=== PATIENT | male | born 1935 | race Caucasian/White ===

== ENCOUNTER 2024-07-24 14:16 | Inpatient (IN) | payer MEDICARE ==
[~2024-07-24] VITALS: Ht 177.8 cm; Wt 97.3 kg
[2024-07-24] VITALS (12 sets, daily range): BP systolic 143–205; BP diastolic 62–93
[2024-07-24 14:44] LABS: BASOPHILS ABSOLUTE AUTO 0.03 K/mm3 (0.00-0.23); BASOPHILS PERCENT AUTO 0 % (0-2); EOSINOPHILS ABSOLUTE AUTO 0.38 K/mm3 (0.00-0.68); EOSINOPHILS PERCENT AUTO 5 % (0-6); Hemoglobin 14.5 g/dL (13.5-17.5); IMMATURE GRAN ABSOLUTE AUTO 0.03 K/mm3 (0.00-0.10); IMMATURE GRAN PERCENT AUTO 0 % (0-1); LYMPHOCYTES ABSOLUTE AUTO 1.31 K/mm3 (0.84-5.20); LYMPHOCYTES PERCENT AUTO 17 % (21-46); MONOCYTES ABSOLUTE AUTO 0.57 K/mm3 (0.16-1.47); MONOCYTES PERCENT AUTO 7 % (4-13); Mean Corpuscular HGB 29.7 pg (26.0-34.0); Mean Corpuscular Volume 90 fL (80-100); Mean Platelet Volume 9.9 fL (9.1-12.4); NEUTROPHILS ABSOLUTE AUTO 5.54 K/mm3 (1.96-9.15); NEUTROPHILS PERCENT AUTO 70 % (41-73); Platelet Count 205 K/mm3 (150-400); RDW Coefficient Variation 12.9 % (11.7-14.2); RDW Standard Deviation 43.4 fL (35.1-46.3); Red Blood Cell Count 4.88 M/mm3 (4.30-5.90); White Blood Cell Count 7.86 K/mm3 (4.00-11.30)
[2024-07-24] MEDS ORDERED: Aspirin 325 MG Tab PO ONE (15:00)
[2024-07-24 15:04] LABS: Albumin, Blood 3.8 g/dL (3.4-5.0); Albumin/Globulin Ratio 1.1 (0.8-1.8); Bilirubin, Total 1.9 mg/dL (0.1-1.0); Bun/Creatinine Ratio 22.5 (12.0-20.0); Calcium, Blood 9.3 mg/dL (8.5-10.1); Creatinine, Blood 0.85 mg/dL (0.60-1.20); Globulin, Blood 3.6 g/dL (2.2-4.0); Potassium, Blood 4.4 mmol/L (3.5-5.5); Total Protein, Blood 7.4 g/dL (6.4-8.2)
[2024-07-24 15:10] LABS: CHOL/HDL RATIO 2.4; Cholesterol 112 mg/dL (50-200); HDL Cholesterol 46 mg/dL (>39); LDL/HDL RATIO 1.2; Low Density Lipoprotein Chol 54 mg/dL (0-110); Triglycerides 61 mg/dL (30-160); Very Low Density Lipoprot Chol 12 mg/dL (6-32)
[2024-07-24 15:15] LABS: International Normalized Ratio 1.07; Prothrombin Time Results 11.4 Sec (9.7-11.5)
[2024-07-24] MEDS ORDERED: Metoprolol Tartrate 1 MG/ML 5 ML VIAL IV PRN ×2 (17:25→17:55)
[2024-07-24] MEDS ORDERED: HydrALAZINE HCl 20 MG / ML 1ML Vial IV PRN (22:50)
[2024-07-25] VITALS (15 sets, daily range): BP systolic 114–188; BP diastolic 50–73
[2024-07-25 00:20] LABS: Albumin, Blood 3.7 g/dL (3.4-5.0); Anion Gap 9 mmol/L (3-11); Blood Urea Nitrogen 17 mg/dL (8-24); CO2, Blood 27 mmol/L (21-32); Calcium, Blood 9.2 mg/dL (8.5-10.1); Chloride, Blood 106 mmol/L (98-108); Creatinine, Blood 0.71 mg/dL (0.60-1.20); Glomerular Filtration Rate 89 (60-); Glucose, Blood 96 mg/dL (70-99); Magnesium, Blood 2.1 mg/dL (1.6-2.4); Phosphorus, Blood 2.6 mg/dL (2.5-4.9); Potassium, Blood 4.3 mmol/L (3.5-5.5); Sodium, Blood 138 mmol/L (136-145)
[2024-07-25 04:57] LABS: Hematocrit 41.3 % (37.0-53.0); Hemoglobin 13.6 g/dL (13.5-17.5); Mean Corpuscular HGB Conc 32.9 g/dL (31.5-36.5); Mean Corpuscular Volume 91 fL (80-100); Mean Platelet Volume 10.1 fL (9.1-12.4); Platelet Count 190 K/mm3 (150-400); RDW Coefficient Variation 12.9 % (11.7-14.2); RDW Standard Deviation 42.9 fL (35.1-46.3); Red Blood Cell Count 4.54 M/mm3 (4.30-5.90); White Blood Cell Count 8.34 K/mm3 (4.00-11.30)
[2024-07-25 05:17] LABS: Bun/Creatinine Ratio 21.2 (12.0-20.0); Calcium, Blood 8.7 mg/dL (8.5-10.1); Creatinine, Blood 0.76 mg/dL (0.60-1.20); Potassium, Blood 3.9 mmol/L (3.5-5.5)
--- NOTE | 2024-07-25 07:00 | NUR ---
PT STABLE THROUGHOUT THE SHIFT BUT WAS CONSISTENTLY BRADYCARDIC IN AFIB/FLUTTER. PT TOLERATING LOW HR WELL AND WAS ASYMPTOMATIC. PHYSICIAN WAS CONTACTED REGARDING THIS, LABS DRAWN AND CONTINUE TO MONITOR. BP REMAINED WNL AND PERMISSIVE HTN WAS FOLLOWED. [place] WAS ABLE [place]AND [place] [facility] [place] PT WAS ABLE TO USE CALL LIGHT AND MAKE NEEDS KNOWN. NIH SCORES DONE. PT MAEW BUT DOES HAVE SLURRED SPEECH AND MILD WORD FINDING/DYSPHASIA.
--- NOTE | 2024-07-25 07:15 | NUR ---
SWALLOW EVAL DONE AT BEGINNING OF SHIFT AND WAS ABLE TO SWALLOW THIN LIQUIDS WELL WITHOUT S/S ASPIRATION.
[2024-07-25] MEDS ORDERED: Atorvastatin 10 MG Tab PO SCH ×2 (09:00)
[2024-07-25] MEDS ORDERED: Aspirin 325 MG Tab PO SCH ×2 (09:00)
[2024-07-25 16:29] LABS: Anti-Xa UFH, PHA Monitoring <0.10 IU/mL
--- NOTE | 2024-07-25 17:43 | NUR ---
SHIFT SUMMARY: PT A&OX4, FOLLOWS COMMANDS AND MAKES NEEDS KNOWN TO STAFF. PTS NIHSS WAS 1 THIS AM AND THERE HAVE BEEN NO WORSENING NEURO SYMPTOMS THROUGHOUT SHIFT. PT HAS REMAINED FREE OF ANY CP, PRESSURE OR TIGHTNESS. PTS BLOOD PRESSURE HAS BEEN WITHIN PERMISSIVE HYPERTENSION PERAMETERS. HR REMAINS ASTER AND IN AFIB. PT HAS NOT BEEN SYPTOMATIC WITH BRADYCARDIA. PROVIDER AWARE OF HR AND NO FURTHER ORDERS WERE GIVEN. PT REMAINS ON RA THROUGHOUT SHIFT AND HAS DENIED ANY COMPLAINTS OF SOB. PT WAS CHECKED OFF BY PT AND OT AND IS AMBULATING TO THE BATHROOM WITH SBA AND WALKER. PLAN TO START PT ON HEPARIN GTT THIS EVENING AND SWITCH TO PO THINNERS ONCE THERAPEUTIC. NO SIGNIFICANT EVENTS HAPPENED DURING THIS SHIFT. WILL CONTINUE TO CARE FOR PT TILL END OF SHIFT.
[2024-07-25] MEDS ORDERED: HydrALAZINE HCl 20 MG / ML 1ML Vial IV PRN (18:10)
[2024-07-25] MEDS ORDERED: Lisinopril 10 MG Tab PO SCH (19:00)
[2024-07-25] MEDS ORDERED: Dose Adjust by Pharmacy XX STA (22:06)
[2024-07-25] MEDS ORDERED: Heparin Sodium,Porcine/0.5 NS 500 ML IV SCH (22:10)
[2024-07-26] VITALS (7 sets, daily range): BP systolic 113–157; BP diastolic 58–81
[2024-07-26 04:33] LABS: Hematocrit 41.3 % (37.0-53.0); Hemoglobin 13.9 g/dL (13.5-17.5); Mean Corpuscular HGB 30.5 pg (26.0-34.0); Mean Corpuscular HGB Conc 33.7 g/dL (31.5-36.5); Mean Corpuscular Volume 91 fL (80-100); Mean Platelet Volume 10.1 fL (9.1-12.4); Platelet Count 200 K/mm3 (150-400); RDW Coefficient Variation 13.1 % (11.7-14.2); RDW Standard Deviation 43.3 fL (35.1-46.3); Red Blood Cell Count 4.56 M/mm3 (4.30-5.90); White Blood Cell Count 8.82 K/mm3 (4.00-11.30)
[2024-07-26 04:51] LABS: Bun/Creatinine Ratio 22.4 (12.0-20.0); Calcium, Blood 9.1 mg/dL (8.5-10.1); Creatinine, Blood 0.89 mg/dL (0.60-1.20); Potassium, Blood 3.9 mmol/L (3.5-5.5)
[2024-07-26] MEDS ORDERED: Clarify Drug Order XX ONE (05:00)
--- NOTE | 2024-07-26 06:44 | NUR ---
PT STABLE THROUGHOUT THE SHIFT. PT AOX4, SBA WITH IV POLE. PT IS STEADY ON FEET. PT ABLE TO USE CALL LIGHT AND MAKE NEEDS KNOWN. NIH IMPROVED FROM PREVIOUS NOC SHIFT AND REMAINED STABLE THROUGHOUT SHIFT. PT DOES CONTINUE TO HAVE BRADYCARDIA BUT IS ASYMPTOMATIC. PT CONTINUES TO MAEW. NEW ULTRASOUND GUIDED IV PLACED TO RIGHT UPPER ARM FOR HEPARIN AND PT TOLERATED WELL. PT DOES HAVE CONCERNS ABOUT BEING D/C'D FROM THE HOSPITAL SOON POSSIBLE AND WANTS TO RESOLVE ANY ISSUES WITH INSURANCE TO EXPEDITE THE D/C PROCESS, WILL PASS ALONG CONCERNS TO ONCOMING SHIFT.
--- NOTE | 2024-07-26 07:00 | NUR ---
PT TOLERATING HEPARIN INFUSION WELL, NO S/S BLEEDING/BRUISING.
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
[2024-07-26] MEDS ORDERED: Dose Adjust by Pharmacy XX STA (11:03)
[2024-07-26] MEDS ORDERED: ATOR10 PO (11:04)
[2024-07-26] MEDS ORDERED: Prinivil10 MG PO (11:05)
[2024-07-26] MEDS ORDERED: ELIQUIS5 M2 PO ×2 (11:09→12:03)
[2024-07-26] MEDS ORDERED: Apixaban 5 MG Tab PO SCH (14:00)
--- NOTE | 2024-07-26 17:40 | NUR ---
NURSING PCU DAYSHIFT SUMMARY: Pt has done very well t/o the shift. Majority of the shift pt has remained OOB in recliner. Currently dressed in personal clothes, working on laptop, visiting w/friend. Ambulates independetly w/assistance only needed for moving equipment. No neuro changes noted. VS have remained stable, HR 30-40's though increases to 50's w/ambulation, nonsymptomatic while emanuel. Discharge meds sent to home pharmacy for pricing and availability information, eliquis starter pack not available until tomorrow 07/27. Discussed plan w/PMD and pt, new d/o received. Hep gtt dc'd, PO eliquis started and first dose administered, plan for discharge home tomorrow.
[2024-07-27 04:18] LABS: BASOPHILS ABSOLUTE AUTO 0.04 K/mm3 (0.00-0.23); BASOPHILS PERCENT AUTO 1 % (0-2); EOSINOPHILS PERCENT AUTO 7 % (0-6); IMMATURE GRAN ABSOLUTE AUTO 0.02 K/mm3 (0.00-0.10); IMMATURE GRAN PERCENT AUTO 0 % (0-1); LYMPHOCYTES ABSOLUTE AUTO 1.81 K/mm3 (0.84-5.20); LYMPHOCYTES PERCENT AUTO 22 % (21-46); MONOCYTES ABSOLUTE AUTO 0.77 K/mm3 (0.16-1.47); MONOCYTES PERCENT AUTO 9 % (4-13); Mean Corpuscular HGB 30.4 pg (26.0-34.0); Mean Corpuscular HGB Conc 33.3 g/dL (31.5-36.5); Mean Corpuscular Volume 91 fL (80-100); Mean Platelet Volume 10.4 fL (9.1-12.4); NEUTROPHILS PERCENT AUTO 61 % (41-73); Platelet Count 200 K/mm3 (150-400); RDW Coefficient Variation 13.1 % (11.7-14.2); RDW Standard Deviation 43.7 fL (35.1-46.3); White Blood Cell Count 8.24 K/mm3 (4.00-11.30)
[2024-07-27 04:20] VITALS: BP 143/70
--- NOTE | 2024-07-27 04:54 | NUR ---
SHIFT SUMMARY THIS RN ASSUMED CARE OF PATIENT AT 1900. PT A&O X4. ABLE TO MAKE NEEDS KNOWN. OCCASIONAL SLURRED SPEECH, BUT DURING BEDSIDE SHIFT REPORT PREVIOUS RN XI STATED THAT PT'S SPEECH HAS GREATLY IMPROVED OVER THE DAY. THIS RN DOES NOT NOTE ANY CHANGES. MILD RT SIDED FACIAL DROOP. NO OTHER NEURO DEFICITS NOTED. INDEPENDENT WITH ADL'S. AMBULATING TO BATHROOM. EQUAL STRENGTH T/O. PT DENIES CHEST PAIN/PRESSURE. SLOW AFIB WITH HR 40-50'S ON MONITOR; ASYMPTOMATIC. BP STABLE. ON RA WITH SPO2 >92%. AFEBRILE. PT IN CHAIR T/O THIS SHIFT, REPORTS THAT HE ONLY TAKES "CAT NAPS". X1 PIV SALINE LOCKED. CALL LIGHT WITHIN REACH. THIS RN WILL REPORT TO ONCOMING DAYSHIFT RN.
[2024-07-27 08:22] VITALS: BP 143/75
[2024-07-27 11:27] VITALS: BP 150/54
--- NOTE | 2024-07-27 12:23 | NUR ---
DISCHARGE SUMMARY PT A&OX4, VSS. MEDICATIONS FAXED TO [facility] [address] PER PT REQUEST. DISCHARGE PAPERWORK REVIEWED W/ PT AND FRIEND. PT EXPRESSED DOES NOT YET HAVE PCP BUT IS ACCEPT TO [facility]. EDUCATED ON THE IMPORTANCE OF CALLING CLINIC TO GET INITAL VISIT WITHIN A WEEK SO PRESCRIPTIONS CAN BE MAINTAINED. RECOMMENEDED BRINGING DISCHARGE PACKET TO PCP VISIT FOR REFERENCE. MEDICATIONS REVIEWED W/ PT AND FRIEND. IV REMOVED. TELEMETRY REMOVED. PT WHEELED TO PRIVATE VEHICLE WITH ALL BELONGINGS.
== END 2024-07-27 11:40 | disposition home or self-care (01) | DRG 66 ==
LOC: ER 14:16 → ERHOLD 17:23 → PCU 17:23 → ER 17:23 → ERHOLD 17:23 → PCU 18:03
PROVIDERS: Emergency Medicine; Student in an Organized Health Care Education/Training Program; ADMIT Internal Medicine
DX: I63.40 Cerebral infarction due to embolism of unspecified cerebral artery (principal); E66.9 Obesity, unspecified; R47.01 Aphasia; I48.91 Unspecified atrial fibrillation; I10 Essential (primary) hypertension; R29.712 NIHSS score 12; R47.1 Dysarthria and anarthria; R29.810 Facial weakness; H54.40 Blindness, one eye, unspecified eye; Z68.31 Body mass index [BMI] 31.0-31.9, adult; Z60.2 Problems related to living alone; Z96.643 Presence of artificial hip joint, bilateral; Z96.653 Presence of artificial knee joint, bilateral; Z79.01 Long term (current) use of anticoagulants; Z98.890 Other specified postprocedural states
CPT/HCPCS: 36415; 36416; 70450; 70496; 70498; 70551; 80048; 80053; 80061; 80069; 83735; 84443; 85025; 85027; 85520; 85610; 85730; 92523; 92610; 93005; 93010; 93306; 97162; 97165; 97530; 97535; A9270; G0378; J1644; Q9967